=== PATIENT | female | born 1950 | race Two or more races ===

== ENCOUNTER 2024-02-09 13:48 | Inpatient (IN) | payer MEDICARE, BC ==
[~2024-02-09] VITALS: Ht 177.8 cm; Wt 86.3 kg
[2024-02-09 14:43] LABS: BASOPHILS % (AUTO) 0.3 % (0.0-2.0); EOSINOPHILS % (AUTO) 0.3 % (0.0-6.0); HEMATOCRIT 37 % (33-45); HEMOGLOBIN 11.8 g/dL (11.5-14.8); LYMPHOCYTES # (AUTO) 0.3 K/uL (0.8-4.8); LYMPHOCYTES % (AUTO) 4.1 % (20.0-44.0); MEAN CORPUSCULAR HEMOGLOBIN 27 PG (26.0-33.0); MEAN CORPUSCULAR HGB CONC 32 g/dl (31.0-36.0); MEAN CORPUSCULAR VOLUME 85 fL (82-100); MONOCYTES # (AUTO) 0.5 K/uL (0.1-1.30); MONOCYTES % (AUTO) 5.5 % (2.0-12.0); NEUTROPHILS # (AUTO) 7.4 K/uL (1.8-8.9); NEUTROPHILS % (AUTO) 89.8 % (43.0-81.0); PLATELET COUNT (AUTO) 196 K/uL (150-450); RED BLOOD CELL COUNT(AUTO) 4.32 MIL/uL (4.0-5.2); RED CELL DISTRIBUTION WIDTH 15.1 % (11.5-15.0); WHITE BLOOD COUNT (AUTO) 8.2 K/uL (4.3-11.0)
[2024-02-09 15:03] LABS: INR 1.02 (0.91-1.10); PROTHROMBIN TIME 10.8 SECS (9.2-11.1)
[2024-02-09 15:06] LABS: CARBON DIOXIDE 29 mmol/L (21-32); CHLORIDE 107 mmol/L (98-107); CREATININE 0.9 mg/dL (0.6-1.3); GLUCOSE 119 mg/dL (74-106); SODIUM SERUM 138 mmol/L (136-145); UREA NITROGEN, BLOOD 22 mg/dL (7-18)
[2024-02-09] MEDS ORDERED: ONDANSETRON HCL/PF 4 MG/2 ML VIAL IVP PRN (17:30)
[2024-02-09] MEDS ORDERED: Z GUARD REMEDY 4 OZ OINT TP PRN (17:30)
[2024-02-09] MEDS: MORPHINE SULFATE INJ 2 MG/ML DISP.SYRIN IV PRN (18:56)
[2024-02-09] MEDS: ENOXAPARIN SODIUM 40 MG/0.4 ML DISP.SYRIN SQ SCH (18:57)
[2024-02-09 20:00] VITALS: BP 139/80; TEMP 99; O2SAT 98
[2024-02-09 20:30] LABS: INR 1.03 (0.91-1.10); PROTHROMBIN TIME 10.9 SECS (9.2-11.1)
[2024-02-10] VITALS (9 sets, daily range): BP systolic 142–165; BP diastolic 72–81; TEMP 97.6–98.1; O2SAT 95–98
[2024-02-10] MEDS ORDERED: ROSU5TAB PO (02:00)
[2024-02-10] MEDS ORDERED: [UNRECOGNIZED DRUG - OTHER] (02:00)
[2024-02-10] MEDS ORDERED: ESCI5TAB PO (02:00)
[2024-02-10] MEDS ORDERED: ASPI-1169 PO (02:00)
[2024-02-10] MEDS ORDERED: DONE10TA11 PO (02:00)
[2024-02-10] MEDS ORDERED: MEMA10TA PO (02:00)
[2024-02-10] MEDS ORDERED: LEVO88TA5 PO (02:00)
[2024-02-10] MEDS ORDERED: CHOL400C8 (02:00)
[2024-02-10] MEDS ORDERED: LOSA25TA27 PO (02:00)
[2024-02-10] MEDS ORDERED: METHYL CPG (02:00)
[2024-02-10] MEDS ORDERED: PRO OMEGA (02:00)
[2024-02-10] MEDS ORDERED: MYRBETRIQ (02:03)
[2024-02-10 08:32] LABS: BASOPHILS % (AUTO) 0.4 % (0.0-2.0); EOSINOPHILS # (AUTO) 0.1 K/uL (0.0-0.7); HEMATOCRIT 35 % (33-45); HEMOGLOBIN 11.4 g/dL (11.5-14.8); LYMPHOCYTES # (AUTO) 0.9 K/uL (0.8-4.8); LYMPHOCYTES % (AUTO) 14.6 % (20.0-44.0); MEAN CORPUSCULAR HEMOGLOBIN 28 PG (26.0-33.0); MEAN CORPUSCULAR HGB CONC 33 g/dl (31.0-36.0); MEAN CORPUSCULAR VOLUME 84 fL (82-100); MONOCYTES # (AUTO) 0.6 K/uL (0.1-1.30); MONOCYTES % (AUTO) 10.5 % (2.0-12.0); NEUTROPHILS # (AUTO) 4.6 K/uL (1.8-8.9); NEUTROPHILS % (AUTO) 73.5 % (43.0-81.0); PLATELET COUNT (AUTO) 177 K/uL (150-450); RED BLOOD CELL COUNT(AUTO) 4.14 MIL/uL (4.0-5.2); WHITE BLOOD COUNT (AUTO) 6.2 K/uL (4.3-11.0)
[2024-02-10] MEDS ORDERED: METHYL CPG PO (09:12)
[2024-02-10] MEDS ORDERED: KETO5DRO83 RIGHTEYE (09:12)
[2024-02-10] MEDS ORDERED: CHOL200059 PO (09:12)
[2024-02-10] MEDS ORDERED: ROSU20TA2 PO (09:12)
[2024-02-10] MEDS ORDERED: MYRBETRIQ PO (09:12)
[2024-02-10] MEDS ORDERED: [UNRECOGNIZED DRUG - OTHER] PO (09:12)
[2024-02-10] MEDS ORDERED: PRED5DRO24 RIGHTEYE (09:12)
[2024-02-10] MEDS ORDERED: PRO OMEGA PO (09:12)
[2024-02-10 09:20] LABS: CALCIUM, SERUM 8.4 mg/dL (8.5-10.1); CARBON DIOXIDE 26 mmol/L (21-32); CHLORIDE 104 mmol/L (98-107); CHOLESTEROL 148 mg/dL (<200); CREATININE 0.9 mg/dL (0.6-1.3); GLUCOSE 103 mg/dL (74-106); HDL CHOLESTEROL 71 mg/dL (40-60); LDL 63 mg/dL (0-99); MAGNESIUM 2.3 mg/dL (1.8-2.4); PHOSPHORUS 2.7 mg/dL (2.5-4.9); POTASSIUM 3.5 mmol/L (3.5-5.1); SODIUM SERUM 138 mmol/L (136-145); TRIGLYCERIDES 65 mg/dL (30-150); UREA NITROGEN, BLOOD 19 mg/dL (7-18)
[2024-02-10] MEDS: MORPHINE SULFATE INJ 2 MG/ML DISP.SYRIN IV ONE (09:54)
[2024-02-10] MEDS: IV NS 0.9% 1,000 ML IV PRN (10:37)
[2024-02-10] MEDS ORDERED: ANESTHESIA TRAY IN PYXIS 1 EA TRAY MC ONE (11:58)
[2024-02-10] MEDS ORDERED: BUPIVACAINE 0.25% 75 MG/30 ML VIAL ONE (11:58)
[2024-02-10] MEDS ORDERED: FENTANYL PF 100MCG/2ML AMPUL ONE (12:09)
[2024-02-10] MEDS ORDERED: TRANEXAMIC ACID 1,000 MG/10 ML VIAL ONE (12:13)
[2024-02-10] MEDS: KETOROLAC EYE 0.5% 3 ML BOTTLE OP SCH (13:00)
[2024-02-10] MEDS: prednisoLONE ACETATE 1% SUSP 5 ML BOTTLE OP SCH (13:00)
[2024-02-10 13:35] LABS: APPEARANCE,URINE CLEAR (CLEAR); BILIRUBIN,URINE NEGATIVE (NEGATIVE); BLOOD, URINE 1+ Ery/uL (NEGATIVE); COLOR,URINE YELLOW (YELLOW); KETONES,URINE NEGATIVE (NEGATIVE); LEUKOCYTE ESTERASE ,URINE NEGATIVE (NEGATIVE); NITRITE, URINE NEGATIVE (NEGATIVE); PROTEIN,URINE TRACE mg/dl (NEGATIVE); UGLUCOSE NEGATIVE (NEGATIVE); UROBILINOGEN,URINE 0.2 EU/dL (0.2)
[2024-02-10 13:50] LABS: ADD URINE CULTURE NO; BACTERIA,URINE None seen /HPF (None Seen); RBC,URINE 0-2 /HPF (0-2); SQUAMOUS EPITHELIAL CELL,UR None Seen /HPF (None Seen); TRICHOMONAS,URINE None Seen /HPF (None Seen); WBC,URINE 0-2 /HPF (0-3); YEAST,URINE None Seen /HPF (None Seen)
[2024-02-10 15:19] LABS: IRON, SERUM 18 ug/dl (50-175); TOTAL IRON BINDING CAPACITY 256 ug/dl (250-450)
[2024-02-10 15:23] LABS: ALANINE AMINOTRANSFERASE 23 U/L (12-78); ALBUMIN 2.7 g/dL (3.4-5.0); ALKALINE PHOSPHATASE 67 U/L (46-116); ASPARTATE AMINOTRANSFERASE 17 U/L (15-37); BILIRUBIN,TOTAL 0.3 mg/dL (0.2-1.0); CALCIUM, SERUM 7.7 mg/dL (8.5-10.1); CARBON DIOXIDE 27 mmol/L (21-32); CHLORIDE 107 mmol/L (98-107); CREATININE 0.9 mg/dL (0.6-1.3); GLUCOSE 108 mg/dL (74-106); POTASSIUM 3.8 mmol/L (3.5-5.1); SODIUM SERUM 141 mmol/L (136-145); TOTAL PROTEIN, SERUM 6.5 g/dL (6.4-8.2); UREA NITROGEN, BLOOD 14 mg/dL (7-18)
[2024-02-10 15:33] LABS: CHOLESTEROL 148 mg/dL (<200); FERRITIN 139 ng/mL (8-388); HDL CHOLESTEROL 69 mg/dL (40-60); LDL 59 mg/dL (0-99); THYROID STIMULATING HORMONE 1.374 uIU/mL (0.358-3.74); TRIGLYCERIDES 64 mg/dL (30-150)
[2024-02-10] MEDS: LOSARTAN POTASSIUM 25 MG TABLET PO SCH (17:30)
[2024-02-10] MEDS: ACETAMINOPHEN 325 MG TABLET PO PRN (19:22)
[2024-02-10] MEDS: DONEPEZIL 5 MG TABLET PO SCH (21:09)
[2024-02-10] MEDS: MEMANTINE HCL 5 MG TABLET PO SCH (21:09)
[2024-02-11 07:53] LABS: BASOPHILS % (AUTO) 0.1 % (0.0-2.0); HEMATOCRIT 34 % (33-45); HEMOGLOBIN 10.8 g/dL (11.5-14.8); LYMPHOCYTES # (AUTO) 0.7 K/uL (0.8-4.8); LYMPHOCYTES % (AUTO) 6.4 % (20.0-44.0); MEAN CORPUSCULAR HEMOGLOBIN 27 PG (26.0-33.0); MEAN CORPUSCULAR HGB CONC 32 g/dl (31.0-36.0); MEAN CORPUSCULAR VOLUME 85 fL (82-100); MONOCYTES # (AUTO) 0.8 K/uL (0.1-1.30); MONOCYTES % (AUTO) 7.5 % (2.0-12.0); NEUTROPHILS # (AUTO) 9.1 K/uL (1.8-8.9); PLATELET COUNT (AUTO) 157 K/uL (150-450); RED BLOOD CELL COUNT(AUTO) 3.94 MIL/uL (4.0-5.2); RED CELL DISTRIBUTION WIDTH 15.4 % (11.5-15.0); WHITE BLOOD COUNT (AUTO) 10.6 K/uL (4.3-11.0)
[2024-02-11 08:00] VITALS: BP 169/85; TEMP 98.6; O2SAT 96
[2024-02-11] MEDS: LEVOTHYROXINE SODIUM 88 MCG TABLET PO SCH (08:46)
[2024-02-11] MEDS: ASPIRIN 81 MG TAB.CHEW PO SCH (08:46)
[2024-02-11] MEDS: ATORVASTATIN 40 MG TABLET PO SCH (08:46)
[2024-02-11] MEDS: CHOLECALCIFEROL 1,000 UNIT TABLET (VIT D3) PO SCH (08:46)
[2024-02-11] MEDS: ESCITALOPRAM OXALATE (10 MG) 10 MG TABLET PO SCH (08:46)
[2024-02-11 09:00] VITALS: BP 150/82
[2024-02-11] MEDS ORDERED: Medication Not On Formulary EA ([Myrbetriq] 50 MG) PO SCH (09:00)
[2024-02-11 09:39] LABS: ALANINE AMINOTRANSFERASE 26 U/L (12-78); ALBUMIN 2.5 g/dL (3.4-5.0); ALKALINE PHOSPHATASE 58 U/L (46-116); ASPARTATE AMINOTRANSFERASE 15 U/L (15-37); BILIRUBIN,TOTAL 0.3 mg/dL (0.2-1.0); CALCIUM, SERUM 8.3 mg/dL (8.5-10.1); CARBON DIOXIDE 25 mmol/L (21-32); CHLORIDE 110 mmol/L (98-107); CREATININE 0.9 mg/dL (0.6-1.3); GLUCOSE 105 mg/dL (74-106); MAGNESIUM 2.2 mg/dL (1.8-2.4); PHOSPHORUS 2.4 mg/dL (2.5-4.9); SODIUM SERUM 142 mmol/L (136-145); TOTAL PROTEIN, SERUM 6.2 g/dL (6.4-8.2); UREA NITROGEN, BLOOD 16 mg/dL (7-18)
[2024-02-11] MEDS: HYDROCODONE/APAP 5/325MG TABLET PO PRN (10:16)
[2024-02-11] MEDS ORDERED: DOCUSATE SODIUM 100 MG CAPSULE PO PRN (12:30)
[2024-02-11] MEDS: CEFAZOLIN 1 GM in IV D5W 50 ML IV ONE (12:59)
[2024-02-11] MEDS: SOD FERRIC GLUC 125 MG in IV NS 0.9% 100 ML IV SCH (14:40)
[2024-02-11 16:20] VITALS: BP 148/82
[2024-02-11] MEDS: LOSARTAN POTASSIUM 25 MG TABLET PO SCH (17:35)
[2024-02-11 20:00] VITALS: BP 160/117; TEMP 98.4; O2SAT 90
[2024-02-11 21:00] VITALS: BP 150/90
[2024-02-11] MEDS: K PHOS NEUTRAL 250 MG TABLET PO ONE (21:32)
[2024-02-11] MEDS: ANCEF 1 GM/50 ML D5W IV SCH (21:36)
[2024-02-12] MEDS: MORPHINE SULFATE INJ 2 MG/ML DISP.SYRIN IV PRN (00:35)
[2024-02-12 07:30] VITALS: BP 184/105; TEMP 99.3; O2SAT 90
[2024-02-12 08:16] LABS: CREATININE 0.7 mg/dL (0.6-1.3); PHOSPHORUS 2.9 mg/dL (2.5-4.9); POTASSIUM 3.6 mmol/L (3.5-5.1)
[2024-02-12 08:31] LABS: CALCIUM, SERUM 7.7 mg/dL (8.5-10.1)
[2024-02-12] MEDS ORDERED: CT SWABBABLE VALVE TRANS SET 1 EA INFUS.SET MC ONE (12:24)
[2024-02-12] MEDS ORDERED: IOHEXOL-350 100 ML VIAL IV ONE (12:24)
[2024-02-12] MEDS ORDERED: IV NS 0.9% 250 ML IV ONE (12:24)
[2024-02-12] MEDS ORDERED: ATOR80TA PO (15:57)
[2024-02-12] MEDS ORDERED: Hydrocodone/Apap 5/325MG PO (15:57)
[2024-02-12] MEDS ORDERED: ENOX40DI SQ (15:57)
[2024-02-12] MEDS ORDERED: LOSA25TA27 PO (15:57)
[2024-02-12 16:00] VITALS: BP 160/94; TEMP 99.3; O2SAT 91
[2024-02-12 18:00] VITALS: BP 152/88
== END 2024-02-12 18:00 | DRG 481 ==
LOC: ER 14:12 → MED 15:56
PROVIDERS: ADMIT Nurse Practitioner Acute Care; ATTEND Nurse Practitioner Family
PROC: 0QS734Z Reposition Left Upper Femur with Internal Fixation Device, Percutaneous Approach (ICD-10-PCS; principal; 2024-02-10)
DX: S72.335A Nondisplaced oblique fracture of shaft of left femur, initial encounter for closed fracture (principal); E44.0 Moderate protein-calorie malnutrition; J98.11 Atelectasis; W01.0XXA Fall on same level from slipping, tripping and stumbling without subsequent striking against object, initial encounter; Y92.009 Unspecified place in unspecified non-institutional (private) residence as the place of occurrence of the external cause; I10 Essential (primary) hypertension; D64.9 Anemia, unspecified; E83.42 Hypomagnesemia; E83.51 Hypocalcemia; E88.09 Other disorders of plasma-protein metabolism, not elsewhere classified; Z87.820 Personal history of traumatic brain injury; Z87.828 Personal history of other (healed) physical injury and trauma; Z86.718 Personal history of other venous thrombosis and embolism
CPT/HCPCS: 36415; 71045-TC; 73502; 73700-TC; 80048-TC; 80053-TC; 80061-TC; 81001; 82728-TC; 83540-TC; 83735-TC; 84100-TC; 84439-TC; 84443-TC; 84484-TC; 85025-TC; 85610-TC; 85730-TC; 86850-TC; 87081-TC; 93307-TC; 94799-TC; 97110-TC; 97116-TC; 97530-TC; A4223; A6209; C1713; G0378; J0690; J1100; J1650; J2270; J2405; J2704; J2916; J3010; J3490; J7030; J7050; J7060; Q9967